=== PATIENT | female | born 1985 | race Caucasian/White ===

== ENCOUNTER 2020-06-17 18:06 | Emergency (ER) | payer BC, SELFPAY ==
[2020-06-17 18:13] VITALS: BP 147/82; PULSE 103; RESP 13; TEMP 36.7; O2SAT 97
--- NOTE | 2020-06-17 18:33 | ED.DENTAL ---
HPI - Dental/Oral General Chief complaint: Dental/Oral Stated complaint: tooth pain Time Seen by Provider: 06/17/20 18:21 Source: patient, RN notes reviewed and old records reviewed Mode of arrival: ambulatory Limitations: no limitations History of Present Illness HPI Narrative: Patient presents today complaining of right lower Dental pain x1 week. She had an appointment to have these teeth removed, but it was canceled due to COVID-19, and she has not been able to get it rescheduled. 2 months ago she took some leftover amoxicillin for a week, but states it did not help with the symptoms. States 1 of the tooth is cracked in half with swelling in the gumline. She has been taking Tylenol and ibuprofen without relief. Currently rates her pain 10/10. Denies shortness of breath or difficulty swallowing. MD Complaint: tooth pain Related Data Home Medications Medication Instructions Recorded Confirmed olmesartan-hydrochlorothiazide 1 tablet PO DAILY 06/17/20 06/17/20 Allergies Allergy/AdvReac Type Severity Reaction Status Date / Time acetaminophen Allergy Intermediate Rash Verified 06/17/20 18:23 azithromycin AdvReac Unknown NAUSEA/ Verified 06/17/20 18:23 VOMITING PROPOXYPHENE NAPSYLATE Allergy Intermediate Rash Uncoded 12/29/18 14:22 CODEINE PHOS AdvReac Unknown NAUSEA/VOMI Uncoded 12/29/18 14:22 TING Review of Systems Review of Systems: Narrative: CONSTITUTIONAL: Denies body aches, fever, chills, or sweats. EYES: Denies visual changes, redness, or discharge. ENT: Denies rhinorrhea, congestion, sore throat, or otalgia.+Dental pain CARDIOVASCULAR: Denies chest pain, palpitations, or edema. RESPIRATORY: Denies cough or dyspnea. GASTROINTESTINAL: Denies abdominal pain, nausea, vomiting, or diarrhea. GENITOURINARY: Denies dysuria or hematuria. SKIN: Denies rash, itching, or wounds. MUSCULOSKELETAL: Denies back pain, joint pain, or myalgia. NEUROLOGIC: Denies headache, numbness, tingling, or weakness. PSYCH: Denies depression or anxiety. PMFSH Comments At time of signature, I have reviewed and agree with nursing past medical, surgical, social and family history unless otherwise noted. Please see nursing chart for further information. There is no relevant family history pertinent to the presenting complaint Exam Narrative: Exam Narrative: GENERAL: Well-appearing, well-nourished, and in no acute distress. HEAD: Normocephalic, atraumatic. EYES: EOMI. No redness or drainage. ENT: Mucous membranes pink and moist. Nares clear. No rhinorrhea. Throat normal. Uvula midline. Teeth #29-31 are grossly decayed and black in color with large caries. Moderate gingival swelling and erythema surrounding without Obvious periapical abscess. No facial swelling. NECK: Normal AROM. Supple. No lymphadenopathy. CHEST: No respiratory distress. Clear to auscultation. HEART: Regular rate and rhythm. No murmur appreciated. Normal peripheral pulses. EXTREMITIES: Normal range of motion. No edema. SKIN: Warm, dry, no rash. Capillary refill normal. Normal skin turgor. NEURO: No focal deficits. Alert and oriented x3. Gait steady. PSYCH: Normal affect. No signs of depression or anxiety. Course Vital Signs Vital signs: Vital Signs Temperature 98.1 F 06/17/20 18:13 Pulse Rate 103 H 06/17/20 18:13 Respiratory Rate 13 06/17/20 18:13 Blood Pressure 147/82 H 06/17/20 18:13 Pulse Oximetry 97 06/17/20 18:13 Temperature 98.1 F 06/17/20 18:13 Pulse Rate 103 H 06/17/20 18:13 Respiratory Rate 13 06/17/20 18:13 Blood Pressure 147/82 H 06/17/20 18:13 Pulse Oximetry 97 06/17/20 18:13 Reviewed. Pt has been instructed to follow up with her PCP regarding her elevated blood pressure today. MDM - Dental/Oral Differential Diagnosis Differential diagnosis: Likely gingival abscess, dental caries, toothache, dental abscess and fracture of tooth Critical Care Time Critical Care Time Critical Care Time: No Disc
== END 2020-06-17 18:41 | disposition home or self-care (01) ==
PROVIDERS: Emergency Provider Nurse Practitioner
DX: K02.9 Dental caries, unspecified (principal); E78.00 Pure hypercholesterolemia, unspecified; I10 Essential (primary) hypertension
CPT/HCPCS: 99213; G0463

== ENCOUNTER 2020-08-08 16:40 | Emergency (ER) | payer BC, SELFPAY ==
--- NOTE | 2020-08-08 16:45 | ED_ITS ---
HPI - General Adult General Chief complaint: Eye Problems Stated complaint: poss [place] eye Time Seen by Provider: 08/08/20 16:45 Source: patient Mode of arrival: ambulatory Limitations: no limitations Related Data Home Medications Medication Instructions Recorded Confirmed olmesartan-hydrochlorothiazide 1 tablet PO DAILY 06/17/20 06/17/20 Allergies Allergy/AdvReac Type Severity Reaction Status Date / Time acetaminophen Allergy Intermediate Rash Verified 06/17/20 18:23 azithromycin AdvReac Unknown NAUSEA/ Verified 06/17/20 18:23 VOMITING PROPOXYPHENE NAPSYLATE Allergy Intermediate Rash Uncoded 12/29/18 14:22 CODEINE PHOS AdvReac Unknown NAUSEA/VOMI Uncoded 12/29/18 14:22 TING Review of Systems Review of Systems: Narrative: CONSTITUTIONAL: Denies fever, chills, or sweats. EYES: Denies visual changes, redness, or discharge. ENT: Denies rhinorrhea, congestion, sore throat, or otalgia. CARDIOVASCULAR: Denies chest pain, palpitations, or edema. RESPIRATORY: Denies cough or dyspnea. GASTROINTESTINAL: Denies abdominal pain, nausea, vomiting, or diarrhea. GENITOURINARY: Denies dysuria or hematuria. SKIN: Denies rash or itching. MUSCULOSKELETAL: Denies back pain, joint pain, or myalgia. NEUROLOGIC: Denies headache, numbness, or weakness. PSYCHIATRIC: Denies anxiety or depression. [facility] Past Medical History Medical History (Updated 08/08/20 @ 16:48 by BENJAMIN Espinoza) Hypertension depression Surgical History Surgical History (Updated 08/08/20 @ 16:48 by BENJAMIN Espinoza) Delivery by section X3 H/O tubal ligation Comments At the time of my signature I agree with nursing past medical history, surgical, social, and family history. There is no relevant family history pertinent to the presenting complaint. Exam Narrative: Exam Narrative: GENERAL: Well-appearing, well-nourished, and in no acute distress. HEAD: Normocephalic, atraumatic. EYES: PERRLA and EOMI. ENT: Nares clear, no rhinorrhea or epistaxis. Mucous membranes moist. NECK: Supple. No lymphadenopathy CHEST: Clear to auscultation. No respiratory distress. HEART: Regular rate and rhythm. No murmur heard. Normal peripheral pulses. ABDOMEN: Soft, nontender, nondistended, normal active bowel sounds. EXTREMITIES: Normal range of motion. No edema. SKIN: Warm, dry, no rash. NEURO: No focal deficits. Alert and oriented x3. Course Vital Signs Vital signs: Vital signs reviewed Medical Decision Making Differential Diagnosis Differential Diagnosis: Differential diagnosis: Conjunctivitis, foreign body, corneal ulcer, Keratitis, dendritic lesions, corneal abrasion, very orbital infection, orbital cellulitis, orbital pain, acute narrow angle glaucoma, detached retina, central retinal artery occlusion, complete hyphema, vitreous hemorrhage, optic neuritis, globe disruption Critical Care Time Critical Care Time Critical Care Time: No Discharge Plan Discharge Prescriptions: No Action olmesartan-hydrochlorothiazide 40-25 mg Tablet 1 tablet PO DAILY RF: 0 amoxicillin 875 mg tablet 875 mg PO Q12H 10 Days Qty: 20 RF: 0
== END 2020-08-08 17:19 | disposition left against medical advice (07) ==
PROVIDERS: Emergency Provider Nurse Practitioner Family
DX: Z53.21 Procedure and treatment not carried out due to patient leaving prior to being seen by health care provider (principal)
CPT/HCPCS: 99199

== ENCOUNTER 2020-08-27 13:37 | Emergency (ER) | payer BC, SELFPAY ==
--- NOTE | ~2020-08-27 | XR_ITS ---
EXAMINATION: XR chest 2V 08/27/2020 14:03 INDICATION: Mid left chest pain PROCEDURE: 2 view chest COMPARISON: No prior studies for comparison. FINDINGS: The lungs are clear. The cardiomediastinal silhouette is within normal limits. There are no pleural effusions. There is no pneumothorax suspected. IMPRESSION: 1: NO ACUTE CARDIOPULMONARY DISEASE. Reviewed, dictated and finalized at location A. SALES CONSULTANT
[2020-08-27 13:42] VITALS: BP 132/83; PULSE 92; RESP 20; TEMP 36.3; O2SAT 99
--- NOTE | 2020-08-27 13:56 | ED.CHESTPAIN ---
HPI - Chest Pain General Chief Complaint: Chest Pain Stated Complaint: chest feels heavy Time Seen by Provider: 08/27/20 13:56 Source: patient Mode of arrival: ambulatory Limitations: physical limitation History of Present Illness HPI narrative: [place] is a 35 yo female with she has a prior medical history of hypertension who comes with mid to mid chest pain with no radiation. Has not been out of hypertensive meds for 1 week- states has had chest pain for 24 hours that varies between 3 and 7 and does not fact increase with movement of her arms is unable to lift hands over head without pain Related Data Home Medications Medication Instructions Recorded Confirmed olmesartan-hydrochlorothiazide 1 tablet PO DAILY 06/17/20 08/27/20 Allergies Allergy/AdvReac Type Severity Reaction Status Date / Time acetaminophen Allergy Intermediate Rash Verified 08/27/20 13:56 azithromycin AdvReac Unknown NAUSEA/ Verified 08/27/20 13:56 VOMITING PROPOXYPHENE NAPSYLATE Allergy Intermediate Rash Uncoded 12/29/18 14:22 CODEINE PHOS AdvReac Unknown NAUSEA/VOMI Uncoded 12/29/18 14:22 TING Review of Systems Review of Systems: Narrative: CONSTITUTIONAL: Denies fever, chills, sweats. EYES: Denies visual changes, redness, discharge. ENT: Denies rhinorrhea, congestion, sore throat, otalgia. CARDIOVASCULAR: Denies chest pain, palpitations, edema. Has chest wall pain RESPIRATORY: Denies dyspnea, wheezing, cough GASTROINTESTINAL: Denies abdominal pain, nausea, vomiting, diarrhea. GENITOURINARY: Denies dysuria, hematuria, abnormal discharge SKIN: Denies rash or itching. NEUROLOGIC: Denies numbness, or focal weakness. PSYCHIATRIC: Denies anxiety or depression. [facility] Past Medical History Medical History Hypertension depression Surgical History Surgical History Delivery by section X3 H/O tubal ligation Social History Social History (Updated 08/27/20 @ 14:22 by Joyce Lacy CNP) Smoking status: Former smoker Alcohol intake: former Comments ` At time of signature, I agree with nursing past medical, surgical, social and family history. There is no relevant family history pertinent to the presenting complaint. Exam Narrative: Exam Narrative: GENERAL: This is a well-nourished, well-developed patient, in mild distress. HEAD: normocephalic, atraumatic. EYES: Sclera clear/white. Vision is grossly intact. EARS: External ears normal, . Hearing grossly intact. NOSE: External nose normal without nasal discharge, nares without redness, no rhinorrhea. THROAT: Mucous membranes moist, NECK: Neck supple, non-tender CARDIOVASCULAR: Regular rate and rhythm without murmurs, gallops, or rubs. RESPIRATORY: Clear to auscultation. Breath sounds equal bilaterally. No wheezes, rales, or rhonchi chest wall has chest wall pain when tries to lift hands and head are forward, has some relief with posterior rotation of her shoulders, not tender to palpation GASTROINTESTINAL: Abdomen soft, non-tender, SKIN: warm, intact with no suspicious lesions or rash, good texture and turgor. NEURO: awake, alert, and oriented to person, place and time. There were no obvious focal neurologic abnormalities. Steady gait EXTREMITIES: Normal range of motion. BACK: Nontender without deformity Course Course Emergency Course: Patient presents to express care with complaints of chest pain mid sternal to left for last 24 hours is not relieved by any kind of movement or eating or laying down, worse when she tries to sit up, Her EKG shows normal sinus rhythm with a rate 84 with no axis deviation normal P waves normal QRS. Her chest x-ray no acute pulmonary disease Renewed her blood pressure meds of omlesatan 40 mg/ HCTZ 25 mg. Started on PPI, baclofen 5 mg Referrals for PCP Vital Signs Vital signs: Vital Signs Temperature
--- NOTE | 2020-08-27 13:57 | ECG_ITS ---
Measurements Intervals [place] Rate: 84 P: -3 IA: 169 QRS: 44 QRSD: 94 T: 26 QT: 358 QTc: 425 Interpretive Statements SINUS RHYTHM ST ELEVATION IN ANTEROLAT/HIGH LAT LEADS- PROBABLY EARLY REPOLARIZATION BASELINE ARTIFACT- I, II, III, AVR, AVL, AVF BORDERLINE ECG Electronically Signed On 08-27-2020 16:20:34 HIGH SPEED PRINTER OPERATOR by Aneesh Cedeno D.O.
== END 2020-08-27 14:36 | disposition home or self-care (01) ==
PROVIDERS: Emergency Provider Nurse Practitioner
DX: R07.89 Other chest pain (principal); M94.0 Chondrocostal junction syndrome [Tietze]; I10 Essential (primary) hypertension
CPT/HCPCS: 71046; 93005; 99213; G0463

== ENCOUNTER 2020-11-11 18:24 | Emergency (ER) | payer BC, SELFPAY | END 2020-11-11 18:38 | disposition left against medical advice (07) | PROVIDERS: Emergency Provider Nurse Practitioner Family; PCP Physician Assistant | DX: Z53.21 Procedure and treatment not carried out due to patient leaving prior to being seen by health care provider (principal) | CPT/HCPCS: 99199 ==

== ENCOUNTER 2022-04-26 11:25 | Emergency (ER) | payer BC, SELFPAY ==
--- NOTE | ~2022-04-26 | XR_ITS ---
XR elbow RT min 3V 04/26/2022 11:44 INDICATION: Right elbow pain PROCEDURE: 4 views right elbow COMPARISON: No prior studies for comparison. FINDINGS: Fracture, dislocation or subluxation is not identified. No significant joint effusion. The soft tissues appear within normal limits. No foreign bodies are identified. IMPRESSION: 1: NO ACUTE BONE OR JOINT ABNORMALITY IDENTIFIED. Reviewed, dictated and finalized at location A.
[2022-04-26 11:32] VITALS: BP 123/86; PULSE 85; RESP 16; TEMP 36.6; O2SAT 98
--- NOTE | 2022-04-26 12:05 | ED.UPPEXIN ---
HPI - Extremity Injury (Upper) General Chief Complaint: Extremity Injury, Upper Stated Complaint: Right Elbow Injury Time Seen by Provider: 04/26/22 12:00 Source: patient, RN notes reviewed and old records reviewed Mode of arrival: ambulatory Limitations: no limitations History of Present Illness HPI narrative: 36 year old female who presents to express care with pain to right elbow region with radiation of pain down forearm to wrist for the past 4 weeks. Patient states that she had initial injury to her right elbow when she caught her mother to prevent her from falling when she had a seizure and strained her elbow she though but it just is not getting any better. Patient reports that she has been taking some Tylenol but doesn't really help. Patient has full mobility of her right arm with some discomfort with movement at elbow, no obvious deformity or bruising, or any tingilng or numbness to right arm. complaint: injury to: right and elbow Onset (ago): week(s) (4) Severity scale (1-10): 8 Treatments prior to arrival: cold therapy and other (Tylenol) Related Data Home Medications Medication Instructions Recorded Confirmed olmesartan 40 1 tablet PO DAILY 06/17/20 08/27/20 mg-hydrochlorothiazide 25 mg tablet Allergies Allergy/AdvReac Type Severity Reaction Status Date / Time acetaminophen Allergy Intermediate Rash Verified 08/27/20 13:56 azithromycin AdvReac Unknown NAUSEA/ Verified 08/27/20 13:56 VOMITING PROPOXYPHENE NAPSYLATE Allergy Intermediate Rash Uncoded 12/29/18 14:22 CODEINE PHOS AdvReac Unknown NAUSEA/VOMI Uncoded 12/29/18 14:22 TING Review of Systems Review of Systems: CONSTITUTIONAL: Denies fever, chills, or sweats. EYES: Denies visual changes, redness, or discharge. ENT: Denies rhinorrhea, congestion, sore throat, or otalgia. CARDIOVASCULAR: Denies chest pain, palpitations, or edema. RESPIRATORY: Denies cough or dyspnea. GASTROINTESTINAL: Denies abdominal pain, nausea, vomiting, or diarrhea. GENITOURINARY: Denies dysuria or hematuria. SKIN: Denies rash or itching. MUSCULOSKELETAL: Denies back pain,positive for pain to right elbow with some radiation to wrist, or myalgia. NEUROLOGIC: Denies headache, numbness, or weakness. PSYCHIATRIC: Denies anxiety or depression. All systems reviewed & are unremarkable except as noted in HPI and below PMFSH Past Medical History Medical History (Updated 04/27/22 @ 08:48 by Carin Laguna NP) Elevated cholesterol Fracture of right upper limb Hypertension depression Surgical History Surgical History (Updated 04/27/22 @ 08:49 by Carin Laguna NP) Delivery by section X4 H/O tubal ligation Social History Social History (Updated 04/27/22 @ 08:50 by Carin Laguna NP) Smoking packs per day: 1 Smoking cigarettes per day: 20.0 Smoking status: Current every day smoker Alcohol intake: former Substance use type: does not use Living arrangements: with family Gender identity (if verbalized by the patient): Female Comments At time of signature, agree with nursing past medical, surgical, social and family history. There is no relevant family history pertinent to the presenting complaint Exam Narrative: GENERAL: Well-appearing, well-nourished, and in no acute distress. HEAD: Normocephalic, atraumatic. EYES: PERRLA and EOMI. ENT: Nares clear, no rhinorrhea or epistaxis. Mucous membranes moist.TM's normal with good light reflex, throat pink with no lesions or exudates. NECK: Supple. no lymphadenopathy CHEST: Clear to auscultation. No respiratory distress.SAO2 98% on room air HEART: Regular rate and rhythm. No murmur heard. Normal peripheral pulses. ABDOMEN: Soft, nontender, nondistended, normal active bowel sounds. EXTREMITIES: Normal range of motion. No edema.SOME painful ROM of right elbow with radiation down to wrist, no obvious deformity noted. stong pulses to right arm,nail beds have brisk capillary refill, no
== END 2022-04-26 12:29 | disposition home or self-care (01) ==
PROVIDERS: Emergency Provider Registered Nurse; PCP Nurse Practitioner Family
DX: S56.911A Strain of unspecified muscles, fascia and tendons at forearm level, right arm, initial encounter (principal); X58.XXXA Exposure to other specified factors, initial encounter; E78.00 Pure hypercholesterolemia, unspecified; I10 Essential (primary) hypertension; F17.210 Nicotine dependence, cigarettes, uncomplicated
CPT/HCPCS: 73080; 99213; G0463

== ENCOUNTER 2023-02-02 11:40 | Emergency (ER) | payer BC, SELFPAY ==
[2023-02-02 11:46] VITALS: BP 151/73; PULSE 92; RESP 20; TEMP 36.7; O2SAT 100
--- NOTE | 2023-02-02 11:55 | ED.EXTPRO ---
HPI - Extremity Problem General Chief complaint: Extremity Problem,Nontraumatic Stated complaint: rt hand swollen History of Present Illness HPI Narrative: PATIENT PRESENTS WITH RIGHT HAND PAIN. PATIENT STATES 3 DAYS AGO SHE BOX. PACKAGED QUITE A BIT OF MERCHANDISE AND USED HER HAND QUITE A BIT. PATIENT STATES SHE HAS BOUGHT A SPLINT AND HAS APPLIED ARTHRITIS CREAM WHICH DID HELP WITH THE PAIN AND DISCOMFORT. PATIENT HAS NORMAL RANGE OF MOTION NO NUMBNESS OR TINGLING NO OPEN AREAS NOTED NO DEFORMITY NOTED. PATIENT ALSO COMPLAINS OF EPIGASTRIC PAIN PATIENT STATES SHE GETS THIS ON AND OFF PATIENT STATES SHE ATE [employer] CH[employer]EN SANDWICH PRIOR TO ARRIVAL. AND TOOK A [place] ONE PRIOR TO ARRIVAL AND HER PAIN HAS SINCE SUBSIDED. NO CHEST PAIN NO SHORTNESS OF BREATH Related Data Home Medications Medication Instructions Recorded Confirmed olmesartan 40 1 tablet PO DAILY 02/02/23 02/02/23 mg-hydrochlorothiazide 25 mg tablet Allergies Allergy/AdvReac Type Severity Reaction Status Date / Time acetaminophen Allergy Intermediate Rash Verified 02/02/23 11:54 azithromycin AdvReac Unknown NAUSEA/ Verified 02/02/23 11:54 VOMITING PROPOXYPHENE NAPSYLATE Allergy Intermediate Rash Uncoded 02/02/23 11:54 CODEINE PHOS AdvReac Unknown NAUSEA/VOMI Uncoded 02/02/23 11:54 TING Review of Systems Review of Systems: CONSTITUTIONAL: DENIES FEVER, CHILLS, OR SWEATS. EYES: DENIES VISUAL CHANGES, REDNESS, OR DISCHARGE. ENT: DENIES RHINORRHEA, CONGESTION, SORE THROAT, OR OTALGIA. CARDIOVASCULAR: DENIES CHEST PAIN, PALPITATIONS, OR EDEMA. RESPIRATORY: DENIES COUGH OR DYSPNEA. GASTROINTESTINAL: DENIES ABDOMINAL PAIN, NAUSEA, VOMITING, OR DIARRHEA. GENITOURINARY: DENIES DYSURIA OR HEMATURIA. SKIN: DENIES RASH OR ITCHING. MUSCULOSKELETAL: DENIES BACK PAIN, JOINT PAIN, OR MYALGIA. NEUROLOGIC: DENIES HEADACHE, NUMBNESS, OR WEAKNESS. PSYCHIATRIC: DENIES ANXIETY OR DEPRESSION. [facility] Past Medical History Medical History (Updated 02/02/23 @ 12:00 by BENJAMIN Kaplan) Elevated cholesterol Fracture of right upper limb Hypertension depression Surgical History Surgical History (Updated 04/27/22 @ 08:49 by Carin Laguna NP) Delivery by section X4 H/O tubal ligation Social History Social History (Updated 04/27/22 @ 08:50 by Carin Laguna NP) Smoking packs per day: 1 Smoking cigarettes per day: 20.0 Smoking status: Current every day smoker Alcohol intake: former Substance use type: does not use Living arrangements: with family Gender identity (if verbalized by the patient): Female Comments AT TIME OF SIGNATURE, AGREE WITH NURSING PAST MEDICAL, SURGICAL, SOCIAL AND FAMILY HISTORY. THERE IS NO RELEVANT FAMILY HISTORY PERTINENT TO THE PRESENTING COMPLAINT Exam Narrative: GENERAL: WELL-APPEARING, WELL-NOURISHED, AND IN NO ACUTE DISTRESS. HEAD: NORMOCEPHALIC, ATRAUMATIC. EYES: PERRLA AND EOMI. ENT: NARES CLEAR, NO RHINORRHEA OR EPISTAXIS. MUCOUS MEMBRANES MOIST. NECK: SUPPLE. CHEST: CLEAR TO AUSCULTATION. NO RESPIRATORY DISTRESS. HEART: REGULAR RATE AND RHYTHM. NO MURMUR HEARD. NORMAL PERIPHERAL PULSES. ABDOMEN: SOFT, NONTENDER, NONDISTENDED, NORMAL ACTIVE BOWEL SOUNDS. NO POSITIVE SIGNS NO GUARDING NO BLOATING EXTREMITIES: NORMAL RANGE OF MOTION. NO EDEMA. HAND EXAM - SKIN INTACT, NO LACERATION, NO SWELLING, NO ERYTHEMA, NORMAL DIGIT CASCADE WITH FLEXION OF FINGERS, MEDIAN NERVE, ULNAR NERVE, RADIAL NERVE IS INTACT. NORMAL SENSATION OF EACH SIDE OF EACH FINGER, CAN PERFORM `OK? SIGN, `CROSS OVER FINGER TEST OF INDEX AND MIDDLE FINGERS? AND `THUMBS UP? SIGN, NORMAL THUMB OPPOSITION, NO SCISSORING. GOOD CAPILLARY REFILL AND RADIAL PULSE. NORMAL FLEXION AND EXTENSION OF FINGERS AND WRIST. NORMAL SUPINATION AT WRIST. NORMAL FOREARM AND ELBOW EXAM. SKIN: WARM, DRY, NO RASH. NEURO: NO FOCAL DEFICITS. ALERT AND ORIENTED X3. CAMRON COMA SCALE EYE OPENING: SPONTANEOUS 4 [place] COMA SCALE
== END 2023-02-02 12:05 | disposition home or self-care (01) ==
PROVIDERS: Emergency Provider Nurse Practitioner Family; PCP Nurse Practitioner Family
DX: M77.8 Other enthesopathies, not elsewhere classified (principal); R10.13 Epigastric pain; E78.00 Pure hypercholesterolemia, unspecified; I10 Essential (primary) hypertension; F17.210 Nicotine dependence, cigarettes, uncomplicated
CPT/HCPCS: 99212; G0463

== ENCOUNTER 2024-01-02 12:46 | Emergency (ER) | payer BC, SELFPAY ==
[2024-01-02 13:10] VITALS: BP 141/80; PULSE 98; RESP 16; TEMP 36.6; O2SAT 98
--- NOTE | 2024-01-02 13:41 | ED.GENADULT ---
HPI - General Adult General Chief complaint: Upper Respiratory Infection Stated complaint: congestion Source: patient, RN notes reviewed and old records reviewed Mode of arrival: ambulatory Limitations: no limitations History of Present Illness HPI narrative: 30-[facility] cough, congestion, sore throat, ear pain, and fatigue for 4 days. Patient taking [id number] medications with no relief. Patient denies chest pain, dizziness, shortness of breath. Related Data Home Medications Medication Instructions Recorded Confirmed olmesartan 40 1 tablet PO DAILY 02/02/23 01/02/24 mg-hydrochlorothiazide 25 mg tablet Allergies Allergy/AdvReac Type Severity Reaction Status Date / Time acetaminophen Allergy Intermediate Rash Verified 01/02/24 13:39 azithromycin AdvReac Unknown NAUSEA/ Verified 01/02/24 13:39 VOMITING PROPOXYPHENE NAPSYLATE Allergy Intermediate Rash Uncoded 01/02/24 13:39 CODEINE PHOS AdvReac Unknown NAUSEA/VOMI Uncoded 01/02/24 13:39 TING Review of Systems Constitutional: Constitutional: Reports no additional constitutional complaints, Reports body ache(s), Denies chills, Reports fatigue, Denies fever(s) and Denies headache(s) Eyes: Eyes: Reports no additional eye complaints and Denies blurry vision ENT: Reports system reviewed and no additional complaints, except as documented, Denies vertigo, Denies dizziness, Denies ear discharge, Reports otalgia, Denies facial pain, Denies headache(s), Reports nasal congestion, Denies nasal discharge, Denies sinus pain, Denies sinus pressure and Denies sore throat Cardiovascular: Cardiovascular: Reports no additional cardiovascular complaints, Denies chest pain, Denies chest pain at rest, Denies rapid heart rate and Denies dyspnea Respiratory: Respiratory: Reports no additional respiratory complaints, Denies chest congestion, Reports cough, Denies pain on inspiration, Denies pain with cough and Denies dyspnea Gastrointestinal: Gastrointestinal: Denies abdominal pain, Denies diarrhea, Denies nausea and Denies vomiting Integumentary/Breasts: Skin/Breast: Denies rash Neurologic: Reports system reviewed and no additional complaints, except as documented, Denies vertigo, Denies dizziness and Denies headache(s) Endocrine: Endocrine: Denies fatigue PMFSH Past Medical History Medical History Elevated cholesterol Fracture of right upper limb Hypertension depression Surgical History Surgical History Delivery by section X4 H/O tubal ligation Social History Social History Smoking packs per day: 1 Smoking cigarettes per day: 20.0 Smoking status: Current every day smoker Alcohol intake: former Substance use type: does not use Living arrangements: with family Gender identity (if verbalized by the patient): Female Comments At the time of my signature, I reviewed and agree with the nursing past medical, surgical, social, and family history. There is no relevant family history pertinent to the patient complaint. Exam Const: General: cooperative, healthy appearing, no acute distress and well nourished Nutritional Appearance: well nourished Orientation/consciousness: patient oriented x3 Limitations: no limitations HENMT: Head: normal to inspection and normocephalic Ears: external ears normal, TM normal on the right, EAC's normal, mastoids normal and TM abnormal bulging on the left and erythematous on the left Face/Nose/Sinus: normal facial exam Face and sinus: normal facial exam Mouth: Yes Normal oral and palatal mucosa present, Yes oropharynx normal and Yes moist mucous membranes Throat: tonsils normal, uvula midline and no uvular edema Eyes: General: appearance normal, both eyes and all related structures Sclera: scl
== END 2024-01-02 14:12 | disposition home or self-care (01) ==
PROVIDERS: Emergency Provider Registered Nurse; PCP Nurse Practitioner Family
DX: H66.002 Acute suppurative otitis media without spontaneous rupture of ear drum, left ear (principal); F17.210 Nicotine dependence, cigarettes, uncomplicated; E78.00 Pure hypercholesterolemia, unspecified; I10 Essential (primary) hypertension
CPT/HCPCS: 99213; G0463